=== PATIENT | male | born 1965 | race African-American/Black ===

== ENCOUNTER 2016-03-23 14:27 | Emergency (ER) | payer BC ==
[2016-03-23] MEDS ORDERED: CloNIDine HCL 0.1 MG TABLET PO ONE (14:46)
--- NOTE | 2016-03-23 14:54 | ED Physician Documentation ---
Upper Respiratory Symptoms - HISTORIAN Historian: patient - HPI Chief Complaint: Cough/ Upper Respiratory Associated Symptoms: fever, chills Further Comments: yes (50 year old male patient presents with complaints of sinus pressure, congestion, body aches and cough. States he has not taken his BP medication for the past 3 days because he was sick.) - ROS CONST/EYES: denies: weakness CVS/RESP: none. denies: chest pain, shortness of breath LYMPH: denies: leg swelling, rash GI/: none NEURO/PSYCH: denies: fainting, dizziness MS/SKIN: denies: joint pain, muscle aches - PAST HX Lung Disease: none PE Risk Factors: hypertension Other History: diabetes Type 2 Surgeries/Procedures: none Allergies/Adverse Reactions: Allergies Allergy/AdvReac Type Severity Reaction Status Date / Time No Known Allergies Allergy Verified 03/23/16 15:00 Home Medications: Ambulatory Orders Medication Instructions Recorded Levofloxacin [Levaquin] 500 mg PO DAILY #10 tablet 03/23/16 Lisinopril [Prinivil] 03/23/16 Sitagliptin Phos/Metformin HCl PO 03/23/16 [Janumet Xr 100-1,000 mg Tablet] amLODIPine BESYLATE [Norvasc] PO 03/23/16 - SOCIAL HX Smoking History: non-smoker - FAMILY HX Family History: denies: none - VITAL SIGNS Vital Signs: Vital Signs Temp Pulse Resp BP Pulse Ox 98 F 98 H 16 222/133 99 03/23/16 17:02 03/23/16 17:02 03/23/16 17:02 03/23/16 14:50 03/23/16 17:02 - REVIEWED ASSESSMENTS Nursing Assessment Reviewed: Yes Vitals Reviewed: Yes Progress - Progress Progress: 1605 BP marginally improved after .2 clonidine po; will give daily norvasc and lisinopril doses. BP improved at discharge. Instructed patient to see his PCP as soon as possible. Reviewed symptoms to return to ER - severe ANDRE, difficulty with speech or movement of extremities, vision changes. ED Results Lab/Radiology - Lab Results Lab Results: Lab Results 03/23/16 14:42 Influenza A (Rapid) Negative (NEGATIVE) Influenza B (Rapid) Negative (NEGATIVE) - Orders Orders: ED Orders Category Date Time Status INFLUENZA A&B Routine Lab 03/23/16 14:42 Completed Chem Sticks Med 03/23/16 15:00 Discontinued 1 each MC PRN CloNIDine HCL [Catapress] Med 03/23/16 14:46 Discontinued 0.2 mg PO NOW ONE Lisinopril [Prinivil] Med 03/23/16 16:05 Discontinued 10 mg PO NOW ONE amLODIPine BESYLATE [Norvasc] Med 03/23/16 16:05 Discontinued 10 mg PO NOW ONE Upper Respiratory Symptoms - EXAM General Appearance: mild distress EENT: eyes nml inspection, lids & conjunct. nml, PERRL, ear nml, pain over sinuses, maxillary, ethmoid, nose nml, pharynx nml, airway nml Respiratory: no resp. 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[employer] Neuro/Psych: oriented x3, neuro intact, mood/affect nml, CN's nml as tested Discharge Clincal Impression: Acute ethmoidal sinusitis Qualifiers: Recurrence: non-recurrent Qualified Code(s): J01.20 - Acute ethmoidal sinusitis , unspecified Acute maxillary sinusitis Qualifiers: Recurrence: non-recurrent Qualified Code(s): J01.00 - Acute maxillary sinusitis , unspecified Hypertension Qualifiers: Hypertension type: essential hypertension Qualified Code(s): I10 - Essential ( primary) hypertension Prescriptions: Levofloxacin [Levaquin] 500 mg PO DAILY #10 tablet Referrals: Primary Doctor,No [Primary Care Provider] - 2 Days Home Medications: Ambulatory Orders Levofloxacin [Levaquin] 500 mg PO DAILY #10 tablet 03/23/16 Lisinopril [Prinivil] 03/23/16 Sitagliptin Phos/Metformin HCl [Janumet Xr 100-1,000 mg Tablet] PO 03/23/16 amLODIPine BESYLATE [Norvasc] PO 03/23/16 Condition: Stable Disposition: 01 HOME, SELF-CARE Decision to Admit: NO Decision Time: 16:45
[2016-03-23 14:56] VITALS: BP 222/133
[2016-03-23] MEDS ORDERED: LISINOPRIL 5 MG TABLET PO ONE (16:05)
[2016-03-23] MEDS ORDERED: amLODIPine BESYLATE 5 MG TABLET PO ONE (16:05)
== END 2016-03-23 17:00 | disposition home or self-care (01) ==
LOC: ED 14:27
DX: J01.20 Acute ethmoidal sinusitis, unspecified (principal); J01.00 Acute maxillary sinusitis, unspecified; I10 Essential (primary) hypertension
CPT/HCPCS: 87400; 99283